=== PATIENT | male | born 1945 | race Caucasian/White ===

== ENCOUNTER 2024-12-09 13:28 | Emergency (ER) | payer OTHER, SELFPAY ==
--- NOTE | ~2024-12-09 | XR_ITS ---
EXAMINATION: XR chest 1V portable DATE: 12/09/2024 14:33 INDICATION: Status post cardiac arrest TECHNIQUE: frontal view of the chest was obtained. COMPARISON: None FINDINGS: Cardiomegaly with pulmonary vascular congestion. Increased perihilar interstitial and airspace opacities most likely pulmonary edema with differential including pneumonia. Large portion of the inferior lung zones are obscured by objects external to patient. The costophrenic angles are both visible demonstrate no pleural effusion. There is no pneumothorax. Median sternotomy wires suggesting possible coronary artery bypass grafting. IMPRESSION: 1. Limited study with significant portions of the lower lungs unable to be visualized. 2. Cardiomegaly with perihilar interstitial and airspace opacities most likely congestive heart failure related pulmonary edema with differential including pneumonia. Reviewed, dictated and finalized at location A. IMPRESSION: 1. Limited study with significant portions of the lower lungs unable to be visu alized. 2. Cardiomegaly with perihilar interstitial and airspace opacities most likely congestive heart failure related pulmonary edema with differential including pn eumonia.
--- NOTE | 2024-12-09 13:30 | PC.NURSE ---
Pt arrives in [facility] with CHRISTOFER, LMA, and IO in place.
--- OUTSIDE RECORDS SUMMARY | 2024-12-09 13:46 | XMS_ITS | Clinical Summary ---
Author Organization [facility] Address [address] [place] [address] Care Team Providers Care Gripper Attacher Name Role Phone Miguel Villar MD Primary Care Provider [phone] Rickey Gomez MD Unavailable [phone] Allergies No known active allergies Medications metFORMIN (GLUCOPHAGE) 500 mg tablet Take 1 tablet (500 mg total) by mouth daily with dinner Active febuxostat (ULORIC) 40 mg tablet Take 1 tablet (40 mg total) by mouth daily Active enalapril (VASOTEC) 20 mg tablet Take 1 tablet (20 mg total) by mouth daily Active metoprolol XL (TOPROL-XL) 50 mg extended release tablet Take 1 tablet (50 mg total) by mouth daily Active amLODIPine (NORVASC) 2.5 mg tablet Take 1 tablet (2.5 mg total) by mouth daily Active aspirin 325 mg enteric coated tabletIndications: Deep Vein Thrombosis Prevention Take 1 tablet (325 mg total) by mouth daily 42 tablet 10/18/19 Active Additional Information Patient not taking.Reported on 11/28/2021 ascorbic acid (VITAMIN C) 500 mg tablet,chewableInd ications:Vitamin deficiency prevention Take 1 tablet/chew tab (500 mg total) by mouth daily 30 tablet/chew tab 10/18/19 Active ondansetron ODT (ZOFRAN-ODT) 4 mg disintegrating tabletIndications: nausea and vomiting Take 1 tablet (4 mg total) by mouth every 6 (six) hours as needed for nausea or vomiting 20 tablet 1 10/18/19 Active Additional Information Patient not taking.Reported on 11/28/2021 senna-docusate (PERICOLACE) 8.6-50 mgIndications:cons tipation Take 2 tablets by mouth 2 (two) times a day 60 tablet 1 10/18/19 Active Additional Information Patient not taking.Reported on 11/28/2021 oxyCODONE-acetamin ophen (PERCOCET) 5-325 mg per tabletIndications: Pain Take 1-2 tablets by mouth every 4 (four) hours as needed for pain 60 tablet 11/07/19 Active zolpidem (AMBIEN) 5 mg tabletIndications: Sleep-Onset Insomnia Take 1 tablet (5 mg total) by mouth nightly as needed for sleep for up to 15 days 15 tablet 11/30/19 Active Active Problems Problem Noted Date Diagnosed Date Primary osteoarthritis of left knee 09/28/2021 Overview (09/28/2021): Added automatically from request for surgery [id number] Surgical History Surgery Date Site/Laterality Comments CARDIAC SURGERY JOINT REPLACEMENT KNEE SURGERY CORONARY ARTERY BYPASS GRAFT Medical History Medical History Date Comments Gout Hypertension Diabetes mellitus (HCC) Myocardial infarction (HCC) [place] (myocardial infarction) (HCC) 2003 4 vessel cabg GERD (gastroesophageal reflux disease) Chronic kidney disease stage 3 Type 2 diabetes mellitus Gout Lung disease Oxygen saturatio ns run low per patient He states 90% is his average Family History Medical History Relation Name Comments No Known Problems Brother No Known Problems Daughter No Known Problems Father No Known Problems Mother No Known Problems Sister Relation Name Status Comments Brother Daughter Father Mother Sister Social History Tobacco Use Types Packs/Day Years Used Date Smoking Tobacco: Former Cigarettes Q uit: 2004 Smokeless Tobacco: Former AUDIT-C Answer Date Recorded Q1: How often do you have a drink containing alcohol? Never 10/16/2021 Q2: How many drinks containi ng alcohol do you have on a typical day when you are drinking? Patient does not drink Q3: How often do you have si x or more drinks on one occasion? 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 Gender Identity Not on file Sexual Orientation Not on file Obstetrics History Last Filed Vital Signs Vital Sign Reading Time Taken Comments Blood Pressure 139/79 10/16/2022 11:15 AM CDT Pulse 69 10/16/2022 11:15 AM CDT Temperature 36.8 C (98.2 F) 10/17/2021 11:00 AM CDT Respiratory Rate 18 10/17/2021 11:00 AM CDT Oxygen Saturation 92% 10/17/2021 11:00 AM CDT Inhaled Oxygen Concentration - - Weight 129.7 kg (286 lb) 10/16/2022 11:15 AM CDT Height 181.6 cm (5' 11.5) 10/16/2022 11:15 AM C DT Body Mass Index 39.33 10/16/2022 11:15 AM CDT Plan of Treatment Health Maintenance Due Date Last Done Comments Depression Screening 1945 Hepatitis C Screening 1945 DTaP/Tdap/Td Vaccine (1 - Tdap) 06/14/1958 Hepatitis B Screening 06/14/1965 Pneumococcal vaccine 65+ (1 of 1 - PCV) 06/14/1997 Zoster Vaccine (1 of 2) 06/14/1997 Abdominal Aortic Aneurysm (AAA) Screen 06/14/2012 Well Visit 65+ 06/14/2012 Fall Risk Assessment 10/17/2022 10/17/2021 Covid-19 Vaccine (2 - season) 2024 Influenza Vaccine (#1) 2024 01/13/2020 Medical Devices Implanted Type Area Metal Cans Supervisor Device Identifier Shelf Expiration Date Model / Serial / Lot [employer] Cement Bone Simplex Gentamicin High Viscosity 40gm 6195-1-001 - Sn/A - [id number] Implanted:Qty: 1 on 10/16/2021 by Rickey Gomez MD at [facility] [employer] [id number] 04/24/2023 6195-1-001 / N/A / [id number] [employer] Cement Bone Simplex Gentamicin High Viscosity 40gm 6195-1-001 - Sn/A - [id number] Implanted:Qty: 1 on 10/16/2021 by Rickey Gomez MD at [facility] [employer] [id number] 04/24/2023 6195-1-001 / N/A / [id number] [employer] Attune Cemented Posterior Stabilize Knee Left 7 Component Femoral [id number] - Sn/A - [id number] Implanted:Qty: 1 on 10/16/2021 by Rickey Gomez MD at [facility] [employer] [id number] 07/23/2031 [id number] / N/A / [id number] [employer] Attune S+ Cement Fix Bearing Knee 7 Baseplate Tibial [id number] - Sn/A - [id number] Implanted:Qty: 1 on 10/16/2021 by Rickey Gomez MD at [facility] [employer] [id number] 06/23/2031 [id number] / N/A / [id number] [employer] Attune 8mm Posterior Stabilize Fix Bearing Knee 7 Insert Tibial [id number] - Sn/A - [id number] Implanted:Qty: 1 on 10/16/2021 by Rickey Gomez MD at [facility] [employer] [id number] 08/22/2026 [id number] / N/A / [id number] Insurance [facility] Member Subscriber Plan / Payer (Ef fective 1999-Present) Name:Eliel Keita Relation to Subscriber:Self Name:Eliel Keita Payer ID:[id number] Group ID:Not on file Type:OTHER GOVERNMENT Address: [place] [id number] [facility] Advance Directives For more information, please contact: [phone] * Full Code (Latest Code Status on File) Date Activated Date Inactivated Comments 10/16/2021 6:21 PM 10/17/2021 6:26 PM Care Teams Gripper Attacher Relationship Specialty Start Date End Date Miguel Villar MD PCP - General Family Medicine 09/27/17 Rickey Gomez MD Surgeon Orthopedic Surgery 10/17/21
--- NOTE | 2024-12-09 13:49 | ED.CPR ---
HPI - CPR General Stated Complaint: ambulance Source: EMS Mode of arrival: EMS History of Present Illness HPI narrative: 79-year-old male with a history of dementia, CAD status post stent, status post CABG, CHF has not been feeling well for the past 2 days. This morning around 12:09 p.m. the patient fell down. His initially thought he was having a stroke. She put out a 911 call at 12:19 p.m.. EMS arrived at 12:26 p.m. Patient was noted to be unresponsive and in PEA Patient resuscitated per ACLS protocol. I- gel was placed and in addition the patient had a left IO placed. Rolf was placed. Patient received 10 rounds of epinephrine. Rhythm was predominantly PEA with intermittent asystole patient was brought into the ED at 1:27 p.m. Patient was noted to be cyanotic in the upper half of the body. Pupils way fixed. No spontaneous breathing. No spontaneous pulse or blood pressure. no evidence of trauma noted except for a laceration over the right eyebrow Rolf was continued. Palpable pulse with the Rolf. No spontaneous pulse noted. Patient was noted to be initially in PEA and subsequently asystole. Patient received 3 rounds of epinephrine. In addition the patient received 50 mEq of sodium bicarbonate. Patient continued to be unresponsive. Pupils are noted to be fixed. No spontaneous breathing. No pulse or blood pressure noted. Patient was pronounced at 1:40 p.m. complaint: found unresponsive Onset (ago): hour(s) ( 1 hour ago) Time: 12:09 Timing confirmed by: spouse Place: home Bystander CPR performed: No AED applied by bystander/home appliance installer: No Shock advised: No Downtime before ACLS arrival (mins): 16 Initial findings in the field: unresponsive ROSC in the field: No Associated injuries: No Known history of: CAD Treatments prior to arrival: other airway device, chest compressions and epinephrine mgs # ( 10 mg) Review of Systems Review of Systems: patient brought in cardiac arrest [facility] Past Medical History Medical History (Updated 12/09/24 @ 14:12 by Artis White MD) CHF (congestive heart failure) Dementia Coronary artery disease Surgical History Surgical History (Updated 12/09/24 @ 14:04 by Artis White MD) H/O heart artery stent Hx of CABG Exam Narrative: patient brought in unresponsive. No pulse. No blood pressure. Patient in PEA Course Course Emergency Course: Patient brought in post cardiac arrest. Ongoing resuscitation patient was pronounced at 1:40 p.m. echocardiogram did not show any cardiac contractility. Cause of -- cardiac arrest secondary to coronary artery disease MDM - Cardiac Arrest/CPR MDM Narrative Medical decision making narrative: Cardiac arrest secondary to coronary artery disease/CHF Discharge Plan Discharge Clinical Impression: Cardiac arrest Coronary artery disease Qualifiers: Coronary Disease-Associated Artery/Lesion type: unspecified vessel or lesion type [place] vs. transplanted heart: [place] heart Associated angina: unspecified whether angina present Qualified Code(s): I25.10 - Atherosclerotic heart disease of [place] coronary artery without angina pectoris CHF (congestive heart failure) Qualifiers: Heart failure type: unspecified Heart failure chronicity: unspecified Qualified Code(s): I50.9 - Heart failure, unspecified Patient Disposition: Condition: Patient Language: Divehi Follow-up/Referrals: UNKNOWN,DOCTOR [Primary Care Provider] Time of Disposition: 14:12
--- NOTE | 2024-12-09 13:50 | PC.NURSE ---
Per EMS pt was found unresponsive by in their home after mowing the lawn today. EMS was called to the residence with concerns of possible stroke. Per EMS pt was no alert and pulseless on arrival, and CPR was immediately initiated. Pt was given multiple rounds of epi en route to hospital. Upon arrival he continued to show PEA rhythm.
--- OUTSIDE RECORDS SUMMARY | 2024-12-09 14:07 | XMS_ITS | Clinical Summary ---
Author Organization [facility] Address [address] [place] [address] Care Team Providers Care Tube Bending Machine Operator Name Role Phone Miguel Villar MD Primary Care Provider [phone] Rickey Gomez MD Unavailable [phone] Allergies No known active allergies Medications metFORMIN [...] (09/28/2021): Added automatically from request for surgery [id number] Surgical History Surgery Date Site/Laterality Comments CARDIAC SURGERY JOINT REPLACEMENT KNEE SURGERY CORONARY ARTERY BYPASS GRAFT Medical History Medical History Date Comments Gout Hypertension Diabetes mellitus (HCC) Myocardial infarction (HCC) [place] (myocardial infarction) (HCC) 2003 4 vessel cabg [...] on file 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 Gender Identity Not on file Sexual Orientation [...] 2024 01/13/2020 Medical Devices Implanted Type Area Embedded Case Manager Device Identifier Shelf Expiration Date Model / Serial / Lot [employer] Cement Bone Simplex Gentamicin High Viscosity 40gm 6195-1-001 - Sn/A - [id number] Implanted:Qty: 1 on 10/16/2021 by Rickey Gomez MD at [facility] [employer] C1713 04/24/2023 6195-1-001 / N/A / [id number] [employer] Cement Bone Simplex Gentamicin High Viscosity 40gm 6195-1-001 - Sn/A - [id number] Implanted:Qty: 1 on 10/16/2021 by Rickey Gomez MD at [facility] [employer] C1713 04/24/2023 6195-1-001 / N/A / [id number] [employer] Attune Cemented Posterior Stabilize Knee Left 7 Component Femoral [id number] - Sn/A - [id number] Implanted:Qty: 1 on 10/16/2021 by Rickey Gomez MD at [facility] [employer] C1776 07/23/2031 [id number] / N/A / [id number] [employer] Attune S+ Cement Fix Bearing Knee 7 Baseplate Tibial [id number] - Sn/A - [id number] Implanted:Qty: 1 on 10/16/2021 by Rickey Gomez MD at [facility] [employer] C1776 06/23/2031 [id number] / N/A / [id number] [employer] Attune 8mm Posterior Stabilize Fix Bearing Knee 7 Insert Tibial [id number] - Sn/A - [id number] Implanted:Qty: 1 on 10/16/2021 by Rickey Gomez MD at [facility] [employer] C1776 08/22/2026 [id number] / N/A / [id number] Insurance [facility] Member Subscriber Plan / Payer (Ef fective 1999-Present) Name:Eliel Keita Relation to Subscriber:Self Name:Eliel Keita Payer ID:[id number] Group ID:Not on file Type:OTHER GOVERNMENT Address: [place] [id number] [facility] Advance Directives For more information, please contact: [phone] * Full Code (Latest Code Status on File) Date Activated Date Inactivated Comments 10/16/2021 6:21 PM 10/17/2021 6:26 PM Care Teams Tube Bending Machine Operator Relationship Specialty Start Date End Date Miguel Villar MD PCP - General Family Medicine 09/27/17 Rickey Gomez MD Surgeon Orthopedic Surgery 10/17/21
--- NOTE | 2024-12-09 15:37 | PC.NURSE ---
Pt belongings sent with pt to home: matthieu majano
--- NOTE | 2024-12-09 17:30 | PC.NURSE ---
Home arrives to remove pt
--- NOTE | 2024-12-09 17:30 | PC.NURSE ---
Home arrives to remove pt.
== END 2024-12-09 13:40 | disposition expired ==
PROVIDERS: Emergency Provider Internal Medicine Critical Care Medicine; PCP Family Medicine
DX: I46.9 Cardiac arrest, cause unspecified (principal); I25.810 Atherosclerosis of coronary artery bypass graft(s) without angina pectoris; I50.9 Heart failure, unspecified; F03.90 Unspecified dementia, unspecified severity, without behavioral disturbance, psychotic disturbance, mood disturbance, and anxiety
CPT/HCPCS: 71045; 92950; 99285; J0168